=== PATIENT | female | born 1995 | race Caucasian/White ===

== ENCOUNTER 2023-07-05 13:39 | Outpatient (AMB) | payer OTHER, SELFPAY ==
--- NOTE | 2023-07-05 14:01 | AM.OFFWIN_ITS ---
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 She states that is mildly itchy. No fever or chills, malaise or myalgias, lymph node swelling or other significant associated symptoms. No known allergens, and no history of contact dermatitis. Reviewed past medical history, and she reports no pertinent issues. Review of Systems Const All systems reviewed & are unremarkable except as noted in HPI and below Physical Exam Vital Signs: Last Vital Signs Temp 97.8 F 07/05/23 14:14 Pulse 64 07/05/23 14:14 BP 110/62 07/05/23 14:14 Pulse Ox 99 07/05/23 14:14 BMI result Body Mass Index 23.1 Skin Other: Scattered erythematous papules to the left restoration, left zygomatic area, and to the left side of the truck. Mildly pruritic. No cellulitic features no ulceration, bleeding or discharge Assessment & Plan Assessment & Plan (1) Contact dermatitis: Code(s): L25.9 - Unspecified contact dermatitis, unspecified cause Qualifiers: Contact dermatitis type: unspecified Plan: Patient has what appears to be a contact dermatitis rash, with on specified trigger. We discussed writing internal of products used, as well as different order new foods and other exposures. A started her on her oral course of foot prednisone since the rash appears to be spreading, and she can use hydrocortisone topically as needed, as it is the safest for the facial area. She knows not to get the product into the eye itself. If he continues to spread, she knows to follow back up, or she can seek out a it network engineer or new vehicle sales consultant. Medications: New prednisone 40 mg (2 x 20 mg) PO DAILY 10 tabs 0RF 5 days hydrocortisone 1% Do not let the ointment get into the actual eye itself 1 appl topical BID 28.35 grams 0RF Coding Level of Care Code New Pt Level 4 (95218) Diagnoses Contact dermatitis L25.9 Contact dermatitis type: unspecified
[2023-07-05 14:14] VITALS: BP 110/62; PULSE 64; TEMP 36.6; O2SAT 99; BMI 23.1
== END 2023-07-05 14:32 | disposition home or self-care (01) ==
LOC: HO.HMGWI 13:39
PROVIDERS: PCP Internal Medicine; Visit Provider Physician Assistant Medical
DX: L25.9 Unspecified contact dermatitis, unspecified cause (principal)
CPT/HCPCS: 99051; 99204